=== PATIENT | male | born 1940 | race Caucasian/White ===

== ENCOUNTER 2016-10-20 15:26 | Inpatient (IN) | payer MEDICARE ==
[~2016-10-20] VITALS: Ht 179.1 cm; Wt 86.2 kg
[~2016-10-20 15:26] MED LIST: ALBU8.5H2 INHALATION; DILT240C9 PO; FAMO20TA4 PO; FLUT12AE8 IH; FURO40TA4 PO; IPRA4AER IH; LIP40 PO; LOSA100T29 PO; MECL-114 PO; NITR0.4T SL; WARF2TAB7 PO; WARF4TAB6 PO
[2016-10-20 15:34] VITALS: BP 130/71; PULSE 78; RESP 28; O2SAT 93
--- NOTE | 2016-10-20 16:00 | ED.REPORT ---
HPI-General Illness Date of Service Oct 20, 2016 ED Provider: Hero Dwyer MD The pt is a 75 y/o male on Warfarin with a hx of HTN, CHF, A-fib, prostate and lung cancer and bilateral renal stents who presents to the ED complaining of worsening shortness of breath, onset 2 days ago. Associated sx include no- productive cough and fever of 101.7. Shortness of breath is present at all times, not necessarily worse with exertion. No associated chest pain. No notable alleviating or exacerbating factors noted previously. The pt was scheduled to have stents placed in his leg [address] Felder but it was cancelled due to an elevated WBC. His X-ray at the time also indicated pneumonia. However, he states that he was not prescribed antibiotics. He denies any other symptoms at this time. Nursing Notes Stated Complaint: SOB,POSS PNEUMONIA Chief Complaint: Respiratory Distress Nursing Notes Reviewed: Yes Allergies: Coded Allergies: lisinopril (Verified Adverse Reaction, Severe, Cough, 10/20/16) Scheduled Albuterol/Ipratropium (Combivent Respimat Inhal [place]) 120 Spr/4 Gm Inhaler 1 PUFF IH QID Atorvastatin (Lipitor) 40 Mg Tablet 40 MG PO DAILY Diltiazem ER (Diltiazem ER) 240 Mg Cap.er.deg 240 MG PO DAILY Famotidine (Famotidine) 20 Mg Tablet 20 MG PO BID Fluticasone Propionate (Flovent HFA 110 mcg) 12 Gm Aer.w.adap 1 PUFF IH BID Furosemide (Furosemide) 40 Mg Tablet 40 MG PO DAILY Losartan Potassium (Losartan Potassium) 50 Mg Tablet 50 MG PO DAILY Nitroglycerin SL (Nitrostat) 0.4 Mg Tab.subl 0.4 MG SL Q5MIN Warfarin Sodium (Warfarin Sodium) 2 Mg Tablet 2 MG PO DAILY 2mg on Friday and Warfarin Sodium (Warfarin Sodium) 4 Mg Tablet 4 MG PO DAILY 4mg daily except on and Scheduled PRN Albuterol HFA (Proair HFA) 8.5 Gm Hfa.aer.ad 2 PUFFS INHALATION Q4H PRN PRN For Shortness of Breath Oxycodone HCl/Acetaminophen 5-325 (Endocet 5-325) 1 Each Tablet 1 TABLET PO Q4H PRN PRN For Pain General Time Seen by MD: 15:58 Chief Complaint Breathing problem Hx Obtained From: Patient Arrived By: Walk-in Sudden in Onset?: Yes Onset Occurred: 2 days ago Symptom Duration: Since onset Severity: Current: No pain currently Severity: Maximum: No pain Recent Healthcare: Recent doctor visit Past Medical History Past Medical History HTN ASTHMA Prostate cancer Lung cancer CHF A-fib Past Surgical History CABG Bilateral renal stents Family History Denies pertinent family history. Smoking History Unknown if Ever Smoker Social History Other Social History: Good social support Ambulatory Status Independent Review of Systems Full Review of Systems Constitutional: Reports: Fever Eyes: Denies: Diplopia Ears / Nose / Throat: Denies: Throat swelling Respiratory: Reports: Non-productive cough, Shortness of breath Cardiovascular: Denies: Chest pain GI: Denies: Abdominal pain Male: Denies Dysuria Musculoskeletal: Denies: Back pain Hematologic: Denies Bruising Endocrine: Denies: Polyuria Skin: Denies Rash Allergy / Immune: Denies: Hives Neurologic: Denies: Headache Psychiatric: Denies: Change mental status Complete sys rev & neg: except as marked. Physical Exam Nursing note and vitals reviewed. Constitutional: Well-developed, well-nourished. Not diaphoretic. Head: Normocephalic and atraumatic. Mouth/Throat: Oropharynx is clear and moist. No oropharyngeal exudate. Eyes: EOM are normal. Pupils are equal, round, and reactive to light. Neck: Supple, no tracheal deviation. Cardiovascular: Normal rate, irregular rhythm. Equal and intact distal pulses throughout. Pulmonary/Chest: Mildly increased respiratory effort. Rhonchi at bilateral bases. Abdominal: Soft. No distension. There is no tenderness, rebound, or guarding. Bowel sounds present. Musculoskeletal: Range of motion grossly intact, moving all extremities. No edema or tenderness appreciated. Neurological: AOx3. Grossly nonfocal exam. Strength and sensation intact and equal to bilateral upper and lower extremities. Skin: Warm and dry, no rashes or pallor appreciated. Psychiatric: Appropriate mood and affect. Behavior appears normal. Vital Signs Vital Signs Date Time Temp Pulse Resp B/P Pulse Ox O2 Delivery O2 Flow Rate FiO2 10/20/16 16:51 70 20 97 Nasal Cannula 3 10/20/16 16:45 99 20 137/77 99 Nasal Cannula 2 10/20/16 15:34 37.9 78 28 130/71 93 Room Air Initial VS: Reviewed Interpretation & Diagnostics Lab Results Interpretation Result Diagram: 10/20/16 1613 10/20/16 1613 Test 10/20/16 16:13 10/20/16 16:22 10/20/16 17:47 White Blood Count 17.4th/mm3 (3.8-10.1) Red Blood Count 3.71mil/mm3 (4.40-5.80) Hemoglobin 11.3g/dL (13.8-17.2) Hematocrit 34.9% (41.0-50.0) Mean Corpuscular Volume 94.1fL (81-100) Mean Corpuscular Hemoglobin 30.5pg (27.0-35.0) Mean Corpuscular Hemoglobin Concent 32.4% (32.0-37.0) Red Cell Distribution Width 14.1% (12.3-15.4) Platelet Count 275bil/L (150-400) Neutrophils (%) (Auto) 84.7% (40-74) Lymphocytes (%) (Auto) 5.1% (14-46) Monocytes (%) (Auto) 9.2% (4-12) Eosinophils (%) (Auto) 0.5% (0-5) Basophils (%) (Auto) 0.2% (0-3) Sodium Level 138mEq/L (134-144) Potassium Level 4.0mEq/L (3.5-5.2) Chloride Level 98mEq/L (97-108) Carbon Dioxide Level 20mmol/L (18-29) Blood Urea Nitrogen 30mg/dL (8-27) Creatinine 1.67mg/dL (0.76-1.27) Estimat Glomerular Filtration Rate 43mL/min (>59) Glucose Level 116mg/dL (60-99) Calcium Level 9.0mg/dL (8.5-10.1) Total Bilirubin 0.8mg/dL (0.0-1.2) Aspartate Amino Transf (AST/SGOT) 29U/L (0-50) Alanine Aminotransferase (ALT/SGPT) 27U/L (0-44) Alkaline Phosphatase 115U/L (25-160) Troponin T 0.027ug/L (0.0-0.011) Pro-B-Type Natriuretic Peptide 3752pg/mL (0-376) Total Protein 7.2g/dL (6.4-8.4) Albumin 3.6g/dL (3.4-5.0) Procalcitonin 0.15ng/mL (0.00-0.08) Lactic Acid Level 1.2mmol/L (0.4-2.0) Urine Color Yellow (YELLOW) Urine Appearance Clear (CLEAR,HAZY) Urine pH 5.0 (5.0-8.0) Urine Specific [place] 1.025 (1.003-1.035) Urine Protein 100mg/dL (NEG,TRACE) Urine Glucose (UA) Negativemg/dL (NEGATIVE) Urine Ketones Negativemg/dL (NEGATIVE) Urine Occult Blood Small (NEGATIVE) Urine Nitrite Negative (NEGATIVE) Urine Bilirubin Negative (NEGATIVE) Urine Urobilinogen Normalmg/dL (NORMAL) Urine Leukocyte Esterase Negative (NEGATIVE) Urine RBC 0-2/hpf (0-2) Urine WBC 0-5/hpf (0-5) Urine Epithelial Cells Occasional/hpf (NONE-MOD) Urine Crystals Amorphous urates (NONE Urine Bacteria None/hpf (NONE-FEW) Urine Hyaline Casts None/lpf (NONE) Urine Granular Casts None seen (NONE SEEN) Urine Waxy Casts None seen (NONE SEEN) Urine Red Blood Cell Casts None seen (NONE SEEN) Urine White Blood Cell Casts None seen (NONE SEEN) Urine Mucus None seen (None Seen) Urine Trichomonas None seen (NONE SEEN) Urine Yeast None (NONE SEEN) Urinalysis Comment None Urine Culture Reflexed Not indicated ECG Interpretation ECG Interpretation: A-fib. Rate 83. Abnormal R-wave progression, early transition. Time: 16:08 Interpreted by: ED physician X-Ray Chest Interpretation Chest Xray Interpretation: IMPRESSION: Small right pleural effusion unchanged to slightly more prominent since the previous x-ray of 10/18/16. No evidence for failure or infiltrate is identified as the cause of this. Dictated by: Fito Cowan M.D. on 10/20/2016 at 16:35 Approved by: Fito Cowan M.D. on 10/20/2016 at 16:41 View: Portable, 1 view Interpretation / Wet Read by: Interpret - Radiologist Re-Eval/Medical Decision Med Decision/Clinical Course In summary, 75-year-old male with a complex past medical history including A. fib on Coumadin presenting to the ED for evaluation of worsening dyspnea over the past several days. Differential is broad and includes PE, pneumonia, COPD exacerbation, CHF exacerbation, ACS, etc. He is not having any pleuritic symptoms and is low risk by Well's criteria. His x-ray does demonstrate what appears to be a pneumonia on the right versus a pleural effusion; however, in the context of fever, leukocytosis with a neutrophilic predominance, I suspect that this is likely a pneumonia at this time. Rest of laboratory studies reviewed, notable for a troponin of 0.027, BNP of 3752, creatinine of 1.67, white blood cell count of 17.4. EKG demonstrates atrial fibrillation, no acute ischemic changes. Given the above, plan admission for further management and evaluation of sepsis from likely community-acquired pneumonia. Started on broad -spectrum antibiotics here in the ED. Patient agreeable to the plan as stated, no further questions. Source of Hx: Old records Time of Eval: 18:29 Re-Evaluation/Progress Note: Rechecked pt. Discussed lab results, imaging results,diagnosis and plan to admit. Pt understands and agrees with the plan for admission. All questions addressed. Consultation : Referral / Consult Name: Gabrielle Mendosa DO Consulted With: Hospitalist Call Returned at: 19:12 Forest Technician: Will see patient, Agrees with eval, Agrees with plan, Accepts admit Counseled Regarding: Diagnosis, Lab results, Need for admission Discharge & Departure Primary Impression: Pneumonia Pneumonia type: due to unspecified organism Laterality: bilateral Lung location: lower lobe of lung Qualified Code: J18.9 - Pneumonia, unspecified organism Additional Impression: Sepsis Sepsis type: sepsis due to unspecified organism Qualified Code: A41.9 - Sepsis, unspecified organism Disposition: ADMITTED TO HOSPITAL Discharge Condition All VS Reviewed: Yes Referrals: Libby Tracey MD (PCP) Scribe Attestation Portions of this note were transcribed by Reji Oates. I,, personally performed the history, physical exam and medical decision-making;I reviewed and confirmed the accuracy of the information in the transcribed note. Signed by Nino Dia. 10/20/16 copies to: Libby Tracey MD, William B MD Oct 20, 2016 16:00 Reji Oates Oct 20, 2016 16:12
[2016-10-20 16:27] LABS: BASOPHILS % (AUTO) 0.2 % (0-3); EOSINOPHILS % (AUTO) 0.5 % (0-5); MONOCYTES % (AUTO) 9.2 % (4-12); Mean Corpuscular Hemoglobin 30.5 pg (27.0-35.0); Mean Corpuscular Volume 94.1 fL (81-100); NEUTROPHILS % (AUTO) 84.7 % (40-74); Platelet Count 275 bil/L (150-400)
[2016-10-20 16:38] LABS: TROPONIN T 0.027 ug/L (0.0-0.011)
[2016-10-20] MEDS ORDERED: Albuterol-Ipratropium 3 mL Inhalation Solution ONE (16:38)
[2016-10-20] MEDS ORDERED: Albuterol 2.5 mg/3 mL Inhalation Solution NEB ONE (16:38)
--- NOTE | 2016-10-20 16:44 | DRSVH ---
PROCEDURE: X-RAY CHEST ONE VIEW, PORTABLE ([id number]) INDICATIONS: shortness of breath TECHNIQUE: One view of the chest was acquired. COMPARISON: [facility], CT, CT ANGIO AORTA RUNOFF, 10/07/2016, 13:15. [facility] pital, CT, CT CHEST ABDOMEN WO CONTRAST, 05/30/2016, 12:45 PM. [facility], CR, CHEST 2V W, 02/23/2014, 10:20. [facility], CR, XR CHEST 1VW (PORTABLE), 10/18/2016, 15:03. FINDINGS: Surgical changes and devices: Sternotomy wires are present. Port-A-Cath from a right internal jugular approach is present and unchanged. Vascular clips are seen in the right upper midline chest are para mediastinal region. Lungs and pleura: There is blunting of the left apical lung field. There is prominent globular shape to the heart and prominent right hilum. These are old findings. There is blunting of the right costop hrenic sulcus which is new since older films but a new finding since CT of the thorax in May [address] of the angeal runoff of September of 2016 Mediastinum: Mediastinal contours appear normal. Heart size is normal. Bones and chest wall: No suspicious bony lesions. Overlying soft tissues appear unremarkable. IMPRESSION: Small right pleural effusion unchanged to slightly more prominent since the previous x-ra y of 10/18/16. No evidence for failure or infiltrate is identified as the cause of this. Dictated by: Fito Cowan M.D. on 10/20/2016 at 16:35 Approved by: Fito Cowan M.D. on 10/20/2016 at 16:41
[2016-10-20 16:45] VITALS: BP 137/77; PULSE 99; RESP 20; O2SAT 99
[2016-10-20 16:51] VITALS: PULSE 70; RESP 20; O2SAT 97
[2016-10-20 18:06] LABS: APPEARANCE,URINE CLEAR (CLEAR,HAZY); COLOR,URINE YELLOW (YELLOW); OCCULT BLOOD,URINE SMALL (NEGATIVE); UROBILINOGEN,URINE NORMAL (NORMAL)
[2016-10-20] MEDS ORDERED: 0.9% Sodium Chloride 1,000 ML IV ONE (18:38)
[2016-10-20] MEDS ORDERED: levoFLOXacin Inj 750 MG in IV Premix 1 EACH IV ONE (18:40)
[2016-10-20] MEDS ORDERED: Cefepime Inj 2,000 MG in Dextrose 5% Minibag Plus 100 ML IV ONE (18:40)
[2016-10-20] MEDS ORDERED: Vancomycin Dose per Pharmacist XX ONE (18:40)
[2016-10-20] MEDS ORDERED: Vancomycin Inj 1,750 MG in 0.9% Sodium Chloride 500 ML IV ONE (18:55)
[2016-10-20 19:34] VITALS: BP 116/58; PULSE 80; RESP 23; O2SAT 93
[2016-10-20] MEDS ORDERED: Alum-Mag Hydrox-Simeth 30 mL Suspension PO PRN (19:45)
[2016-10-20] MEDS ORDERED: Polyethylene Glycol (PEG) 17 Gm Powder PO PRN (19:45)
[2016-10-20 20:10] VITALS: BP 163/71; PULSE 77; RESP 20; O2SAT 94
[2016-10-20 20:20] VITALS: PULSE 76
--- NOTE | 2016-10-20 20:31 | PCM.HPMED ---
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 Reportedly seen [address] Felder for evaluation of peripheral stent placement in Rt LE, this was postponed after being found that he had an elevated white blood count, chest x- ray at the time showed infiltrate suspicious of pneumonia. At the time he is asymptomatic except for dry cough which he attributed to [place] He has a daughter who is a nurse who saw him today and recommended he go to the ER due to his increased respiratory rate and increased cough. On presentation to the emergency department had a temperature of 37.9, respiratory rate 28, 93% on room air, blood pressure 130/71. White blood cell count 17.4, 84% neuts, hemoglobin 11.3 BUN 30 creatinine 1.67, glucose 116, lactic acid 1.2, troponin 0.27 EKG showed atrial fibrillation, no signs of acute ischemia or infarct, QTC 486, rate 83. Chest x-ray redemonstrated findings from chest x-ray on 10/18/2016 -small right pleural effusion. Based on patient's increased respiratory rate, elevated temperature, elevated white blood count, patient was admitted for sepsis secondary to community- acquired pneumonia. He received a dose of vancomycin, cefepime, and the emergency department was admitted and placed on ceftriaxone. On encounter for admission patient denies any lightheadedness, dizziness, nausea vomiting diarrhea, constipation, bruising or bleeding, headache, changes in vision, palpitations, chest pain, numbness weakness or tingling in his arms hands feet or legs, weight loss or weight gain. Review of Systems: A comprehensive review of systems was conducted with the patient and found to be negative except as above in the history of presenting illness. Allergies Coded Allergies: lisinopril (Verified Adverse Reaction, Severe, Cough, 10/20/16) Home Medications Scheduled Albuterol HFA (Proair HFA) 8.5 Gm Hfa.aer.ad 2 PUFFS INHALATION Q4H Albuterol/Ipratropium (Combivent Respimat Inhal [place]) 120 Spr/4 Gm Inhaler 1 PUFF IH QID Atorvastatin (Lipitor) 40 Mg Tablet 40 MG PO DAILY Diltiazem ER (Diltiazem ER) 240 Mg Cap.er.deg 240 MG PO DAILY Famotidine (Famotidine) 20 Mg Tablet 20 MG PO BID Fluticasone Propionate (Flovent HFA 110 mcg) 12 Gm Aer.w.adap 1 PUFF IH BID Furosemide (Furosemide) 40 Mg Tablet 40 MG PO DAILY Losartan Potassium (Losartan Potassium) 100 Mg Tablet 100 MG PO DAILY Meclizine ([place]) 25 Mg Tab.chew 12.5 MG PO BID Nitroglycerin SL (Nitrostat) 0.4 Mg Tab.subl 0.4 MG SL Q5MIN Warfarin Sodium (Warfarin Sodium) 2 Mg Tablet 2 MG PO DAILY 2mg on Friday and Warfarin Sodium (Warfarin Sodium) 4 Mg Tablet 4 MG PO DAILY 4mg daily except on and PMH HTN ASTHMA Prostate cancer Lung cancer CHF A-fib Surgical History CABG, first in 1984, again in 2005 Bilateral renal stents Family History Father had coronary artery disease, of myocardial infarction at age of 51. Mother "" at the age of 70 cause of unknown. Sister of a myocardial infarction at age 31. Brother of myocardial infarction at age of 77 and was reportedly 600 pounds. Social History Hx Alcohol Use: No Hx Substance Use: No Hx Tobacco Use: Yes Smoking Status: Former Smoker (quit 25 years ago), Unknown if Ever Smoker Living Arrangement: Alone Exam Vital Signs Vital Sign - Last Date Time Temp Pulse Resp B/P Pulse Ox O2 Delivery O2 Flow Rate FiO2 10/20/16 20:10 37.1 77 20 163/71 94 Nasal Cannula 2.00 Exam General: Laying in bed, no apparent distress. HEENT: Normocephalic, atraumatic, EOMI grossly, mucous membranes moist, nasal cannula in place, conjunctiva pink, neck supple without lymphadenopathy, no JVD. Cardiovascular: Irregularly irregular rhythm, unable to appreciate clicks murmurs or rubs, peripheral pulses intact equal bilaterally upper and lower. Pulmonary: Diffuse rhonchi, most likely transmitted from upper airway, unable to appreciate dullness to percussion, egophony normal. No wheezing or rales. - Port present and covered on R anterior chest wall. Abdominal: Soft to palpation, bowel sounds present 4, no hepatosplenomegaly. Negative rebound. Extremities: No edema appreciated. No tenderness, asymmetry. Neuro: Neurologically grossly intact, strength is equal bilaterally upper and lower extremities. MSK: Able to move extremities on their own volition, strength 5 out of 5 equal bilaterally to upper and lower extremities. Psychiatric: Normal and appropriate affect, alert and oriented. Lab and Diagnostics Result Diagram: 10/20/16 1613 10/20/16 1613 X-Rays, CTs and MRIs Chest x-ray performed 10/20/2016 IMPRESSION: Small right pleural effusion unchanged to slightly more prominent since the previous x-ray of 10/18/16. No evidence for failure or infiltrate is identified as the cause of this. Dictated by: Fito Cowan M.D. on 10/20/2016 at 16:35 12-lead ECG Rate 83, normal axis, irregularly irregular rhythm with absence of P waves, no signs of acute infarct or ischemia, QTC 486 Assessment & Plan 75-year-old gentleman with history of coronary artery disease status post bypass 2, atrial fibrillation anticoagulated, renovascular stenting, lung cancer status post chemotherapy, found to have community-acquired pneumonia 2 days ago with instructions to follow up with primary care doctor on Friday began to have worsening shortness of breath and presented to the emergency department where he was found to meet sepsis criteria and was admitted for sepsis treatment at community acquired pneumonia management. Acute Sepsis, present on admission, active Respiratory rate 28 on presentation, WBCs 17.4, dyspnea, cough, x-ray demonstrating pneumonia(reviewed by admitting team on admission). Treatment CAP as below Blood cultures pending Lactic acid was normal IV fluids 100 mL per hour normal saline. Acute Community acquired pneumonia, present on admission, active Curb 65 score 2, for increased BUN and age greater than 65, BUN chronically elevated. Demonstrated a by x-ray, tachypnea, subjective shortness of breath, elevated white blood count. Received dose of vancomycin, cefepime, levofloxacin from the emergency department. Continue levofloxacillin 750 mg daily (monitor QTC, repeat EKG prior to discharge). Sputum cultures ordered, not acquired before antibiotics given Urine Legionella and strep pneumo antigen ordered. MRSA nasal screen pending. Respiratory virus PCR profile Supplementary O2 as needed to maintain oxygen saturation between 88 and 92% Acute Leukocytosis, present on admission, active Attributed to pulmonary infection. Monitor with a.m. labs Elevated troponin, chronicity unclear, Present on admission, active Review of hospital labs does not show any previous troponins. Every 6 hour troponin to trend. May be attributed to decreased renal function and subsequent decreased clearance , however was substantial cardiac history we will continue to monitor. Permanent Atrial fibrillation, present on admission, active Rate controlled on diltiazem, anticoagulated on warfarin. PT/INR pending Placed on remote telemetry Warfarin to be dosed by pharmacy Chronic obstructive pulmonary disease, present on admission, active Continue home albuterol and Combivent. Supplemental oxygen as needed to maintain oxygen saturation between 88-92% His symptoms become worsening or uncontrolled switch nebulized albuterol or DuoNeb's. Chronic Congestive heart failure, present on admission, stable Blood pressure is controlled, continue home furosemide, losartan, atorvastatin. Patient has allergy to lisinopril. Continue home medications Physical exam, chest x-ray do not suggest exacerbation. Chronic Hypertension, controlled on admission, active Continue home medications as above Chronic kidney disease, present on admission, stable Creatinine 1.67, review of records shows this to be patient's baseline. We will continue to monitor with daily BMP/CMP Patient admitted to inpatient status with anticipated length of stay greater than 2 midnights based on presenting symptoms, complexity of care, and anticipated risk of adverse events. DVT prophylaxis, patient currently on warfarin. Pain management: Acetaminophen. GI prophylaxis not indicated at this time Pain Evaluation: Adequate Pain Control GI Prophylaxis: Not indicated VTE Prophylaxis: Theraputic Anticoag with Warfarin Resuscitation Status: CPR: Attempt Resuscitation Attending Statement The patient was seen and examined together with house staff on 10/20/2016 and I agree with the history, exam and plan as outlined in the note above. Jose Zamora DO Oct 20, 2016 20:31 Gabrielle Mnedosa DO Oct 20, 2016 23:41
[2016-10-20] MEDS ORDERED: MECLIZINE 12.5 MG PO SCH (20:55)
[2016-10-20] MEDS ORDERED: Albuterol HFA 60 Puff 8 Gm Inhaler INHALATION SCH (20:55)
[2016-10-20] MEDS ORDERED: FLUTICASONE PROPIONATE IH SCH (20:55)
[2016-10-20] MEDS ORDERED: Albuterol 2.5 mg/3 mL Inhalation Solution NEB PRN (21:20)
--- NOTE | 2016-10-20 22:00 | NUR ---
admit note Pt is admitted to room 3027 around 20:00 from ED for pneumonia and sepsis. Pt is A&Ox4, gets very SOB with exertion; relieves when resting in bed. SpO2 @88% on RA when sitting in bed; up to mid 90s on 2L O2 via NC. Persistent productive cough. Levaquin given, Vanco infusing at this time w/o adverse reaction noted. Pt is oriented to room and plan of care; he verbalized understanding. Encouraged to call for assistance when getting OOB due to lines and SOB; he verbalized understanding. bed alarm on for safety Med Rec completed using pt's own med list. Dr. Zamora notified of the changes. Addendum: 10/21/16 at 0455 by JASWANT TAYLOR RN Pt still c/o moderate SOB with exertion. denies SOB when resting in bed or sitting in the chair. denies pain or discomfort. slept very little tonight. able to make needs known. Addendum: 10/21/16 at 0540 by JASWANT TAYLOR RN Pt unable to tolerate O2 via NC; "it feels like it's choking me". Sats in high 90s on 2L. Pt desats with exertion sating 85% on RA with increase in wheezing. SpO2 up to low 90s on RA when resting. Neb tx will be given by RT.
[2016-10-20 22:28] LABS: INR 1.19 ratio
[2016-10-20] MEDS: Fluticasone 0.05% 15 Spray/2 Gm 16 Gm Nasal Spray NASAL SCH (23:19)
[2016-10-20] MEDS ORDERED: ALBU8.5H2 INHALATION (23:45)
[2016-10-20] MEDS ORDERED: LOSA50TA37 PO (23:45)
[2016-10-20] MEDS ORDERED: OXYC-407 PO (23:45)
[2016-10-21] VITALS (10 sets, daily range): BP systolic 127–176; BP diastolic 71–87; PULSE 60–95; RESP 18–22; O2SAT 93–97
[2016-10-21] MEDS ORDERED: Albuterol HFA 60 Puff 8 Gm Inhaler INHALATION PRN (00:55)
[2016-10-21] MEDS: Albuterol-Ipratropium 120 Spray 4 Gm Inhaler INHALATION SCH ×5 (01:14→20:35)
[2016-10-21] MEDS: 0.9% Sodium Chloride 1,000 ML IV SCH ×3 (02:25→22:25)
[2016-10-21 02:35] LABS: BASOPHILS % (AUTO) 0.1 % (0-3); EOSINOPHILS % (AUTO) 0.4 % (0-5); MONOCYTES % (AUTO) 11.8 % (4-12); Mean Corpuscular Hemoglobin 29.8 pg (27.0-35.0); Mean Corpuscular Volume 94.3 fL (81-100); NEUTROPHILS % (AUTO) 79.3 % (40-74); Platelet Count 247 bil/L (150-400)
[2016-10-21 02:55] LABS: Magnesium 2.1 mg/dL (1.6-2.6)
[2016-10-21] MEDS ORDERED: cefTRIAXone Inj 2,000 MG in Dextrose 5% Minibag Plus 50 ML IV SCH (08:30)
[2016-10-21] MEDS ORDERED: DILTIAZEM 240 MG PO SCH (08:30)
[2016-10-21] MEDS: Fluticasone 0.05% 15 Spray/2 Gm 16 Gm Nasal Spray NASAL SCH ×2 (08:30→20:30)
[2016-10-21] MEDS: levoFLOXacin Inj 750 MG in IV Premix 1 EACH IV SCH (09:13)
[2016-10-21] MEDS: Diltiazem CD 240 mg ER24 Capsule PO SCH (09:13)
[2016-10-21] MEDS ORDERED: Heparin Initial Bolus IVPUSH ONE (10:20)
[2016-10-21] MEDS ORDERED: Heparin Protocol Boluses IVPUSH PRN (10:20)
--- NOTE | 2016-10-21 10:37 | PCM.PHAPRO ---
Progress Date of Service: Oct 21, 2016 Warfarin dosing Date -Oct 21-Oct INR 1.19 1.19 INR change Warf Dose 6mg 4mg Madeline Sutton PharmD Oct 21, 2016 10:37
[2016-10-21] MEDS: Heparin 25K Unit/500mL 0.45 NS 25,000 UNIT in IV Premix 1 EACH IV SCH (11:03)
--- NOTE | 2016-10-21 13:05 | PCM.PNMED ---
Subjective Date of Service Oct 21, 2016 Subjective Patient with cough which started recently. Generally nonproductive. 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 Dubois and oncologist is Dr. Rocha. Exam Vital Signs Vital Sign - Last Date Time Temp Pulse Resp B/P Pulse Ox O2 Delivery O2 Flow Rate FiO2 10/21/16 09:40 93 10/21/16 09:24 36.6 18 163/87 93 Room Air 10/21/16 02:32 2.00 Intake and Output 10/20/16 10/20/16 10/21/16 Cumulative From/Thru 15:00 23:00 07:00 10/20/16 15:34 - 10/21/16 06:38 Intake Total 999 ml 1054 ml 2053 ml Output Total 275 ml 275 ml Balance 999 ml 779 ml 1778 ml Intake Oral 400 ml 400 ml IV Total 999 ml 654 ml 1653 ml Output Urine Total 275 ml 275 ml Exam Constitutional: Elderly male in no acute distress Head: Normocephalic atraumatic Chest: Decreased breath sounds at his bases bilaterally Cor: Irregular regular rate and rhythm S1-S2 Abdomen: Soft nontender bowel sounds present Extremities: Bilateral pedal edema Neuro: Alert and oriented 3, motor strength is intact bilaterally IVs and Medications Medications Reviewed: Medications were reviewed in detail Lab and Diagnostics Laboratory Tests 72 Hours Test 10/20/16 16:13 10/20/16 16:22 10/20/16 17:47 10/20/16 21:50 White Blood Count 17.4th/mm3 (3.8-10.1) Red Blood Count 3.71mil/mm3 (4.40-5.80) Hemoglobin 11.3g/dL (13.8-17.2) Hematocrit 34.9% (41.0-50.0) Mean Corpuscular Volume 94.1fL (81-100) Mean Corpuscular Hemoglobin 30.5pg (27.0-35.0) Mean Corpuscular Hemoglobin Concent 32.4% (32.0-37.0) Red Cell Distribution Width 14.1% (12.3-15.4) Platelet Count 275bil/L (150-400) Neutrophils (%) (Auto) 84.7% (40-74) Lymphocytes (%) (Auto) 5.1% (14-46) Monocytes (%) (Auto) 9.2% (4-12) Eosinophils (%) (Auto) 0.5% (0-5) Basophils (%) (Auto) 0.2% (0-3) Sodium Level 138mEq/L (134-144) Potassium Level 4.0mEq/L (3.5-5.2) Chloride Level 98mEq/L (97-108) Carbon Dioxide Level 20mmol/L (18-29) Blood Urea Nitrogen 30mg/dL (8-27) Creatinine 1.67mg/dL (0.76-1.27) Estimat Glomerular Filtration Rate 43mL/min (>59) Glucose Level 116mg/dL (60-99) Calcium Level 9.0mg/dL (8.5-10.1) Total Bilirubin 0.8mg/dL (0.0-1.2) Aspartate Amino Transf (AST/SGOT) 29U/L (0-50) Alanine Aminotransferase (ALT/SGPT) 27U/L (0-44) Alkaline Phosphatase 115U/L (25-160) Troponin T 0.027ug/L (0.0-0.011) Pro-B-Type Natriuretic Peptide 3752pg/mL (0-376) Total Protein 7.2g/dL (6.4-8.4) Albumin 3.6g/dL (3.4-5.0) Procalcitonin 0.15ng/mL (0.00-0.08) Lactic Acid Level 1.2mmol/L (0.4-2.0) Urine Color Yellow (YELLOW) Urine Appearance Clear (CLEAR,HAZY) Urine pH 5.0 (5.0-8.0) Urine Specific [place] 1.025 (1.003-1.035) Urine Protein 100mg/dL (NEG,TRACE) Urine Glucose (UA) Negativemg/dL (NEGATIVE) Urine Ketones Negativemg/dL (NEGATIVE) Urine Occult Blood Small (NEGATIVE) Urine Nitrite Negative (NEGATIVE) Urine Bilirubin Negative (NEGATIVE) Urine Urobilinogen Normalmg/dL (NORMAL) Urine Leukocyte Esterase Negative (NEGATIVE) Urine RBC 0-2/hpf (0-2) Urine WBC 0-5/hpf (0-5) Urine Epithelial Cells Occasional/hpf (NONE-MOD) Urine Crystals Amorphous urates (NONE Urine Bacteria None/hpf (NONE-FEW) Urine Hyaline Casts None/lpf (NONE) Urine Granular Casts None seen (NONE SEEN) Urine Waxy Casts None seen (NONE SEEN) Urine Red Blood Cell Casts None seen (NONE SEEN) Urine White Blood Cell Casts None seen (NONE SEEN) Urine Mucus None seen (None Seen) Urine Trichomonas None seen (NONE SEEN) Urine Yeast None (NONE SEEN) Urinalysis Comment None Urine Culture Reflexed Not indicated Prothrombin Time 12.8sec (8.1-12.5) Prothromb Time International Ratio 1.19ratio Test 10/21/16 02:25 10/21/16 02:30 10/21/16 05:05 10/21/16 10:20 White Blood Count 15.2th/mm3 (3.8-10.1) Red Blood Count 3.52mil/mm3 (4.40-5.80) Hemoglobin 10.5g/dL (13.8-17.2) Hematocrit 33.2% (41.0-50.0) Mean Corpuscular Volume 94.3fL (81-100) Mean Corpuscular Hemoglobin 29.8pg (27.0-35.0) Mean Corpuscular Hemoglobin Concent 31.6% (32.0-37.0) Red Cell Distribution Width 14.3% (12.3-15.4) Platelet Count 247bil/L (150-400) Neutrophils (%) (Auto) 79.3% (40-74) Lymphocytes (%) (Auto) 8.1% (14-46) Monocytes (%) (Auto) 11.8% (4-12) Eosinophils (%) (Auto) 0.4% (0-5) Basophils (%) (Auto) 0.1% (0-3) Sodium Level 139mEq/L (134-144) Potassium Level 4.0mEq/L (3.5-5.2) Chloride Level 101mEq/L (97-108) Carbon Dioxide Level 21mmol/L (18-29) Blood Urea Nitrogen 29mg/dL (8-27) Creatinine 1.56mg/dL (0.76-1.27) Estimat Glomerular Filtration Rate 47mL/min (>59) Glucose Level 106mg/dL (60-99) Calcium Level 9.0mg/dL (8.5-10.1) Magnesium Level 2.1mg/dL (1.6-2.6) Total Bilirubin 0.7mg/dL (0.0-1.2) Aspartate Amino Transf (AST/SGOT) 28U/L (0-50) Alanine Aminotransferase (ALT/SGPT) 30U/L (0-44) Alkaline Phosphatase 108U/L (25-160) Total Protein 7.0g/dL (6.4-8.4) Albumin 3.7g/dL (3.4-5.0) Troponin T 0.024ug/L (0.0-0.011) 0.023ug/L (0.0-0.011) Urine Legionella pneumophilia Ag Negative (Negative) Result Diagram: 10/21/1622410/21/16224 X-Rays, CTs and MRIs Chest x-ray performed 10/20/2016 IMPRESSION: Small right pleural effusion unchanged to slightly more prominent since the previous x-ray of 10/18/16. No evidence for failure or infiltrate is identified as the cause of this. Dictated by: Fito Cowan M.D. on 10/20/2016 at 16:35 12-lead ECG Rate 83, normal axis, irregularly irregular rhythm with absence of P waves, no signs of acute infarct or ischemia, QTC 486 Assessment & Plan 75-year-old gentleman with history of coronary artery disease status post bypass 2, atrial fibrillation anticoagulated, renovascular stenting, lung cancer status post chemotherapy, found to have community-acquired pneumonia 2 days ago with instructions to follow up with primary care doctor on Friday began to have worsening shortness of breath and presented to the emergency department where he was found to meet sepsis criteria and was admitted for sepsis treatment at community acquired pneumonia management. Acute Sepsis, present on admission, active Respiratory rate 28 on presentation, WBCs 17.4, dyspnea, cough, x-ray demonstrating pneumonia(reviewed by admitting team on admission). Treatment CAP as below Blood cultures pending Lactic acid was normal IV fluids 100 mL per hour normal saline. Acute Community acquired pneumonia, present on admission, active Curb 65 score 2, for increased BUN and age greater than 65, BUN chronically elevated. Demonstrated a by x-ray, tachypnea, subjective shortness of breath, elevated white blood count. Received dose of vancomycin, cefepime, levofloxacin from the emergency department. Continue levofloxacillin 750 mg daily (monitor QTC, repeat EKG prior to discharge). Sputum cultures ordered, not acquired before antibiotics given Urine Legionella and strep pneumo antigen ordered. MRSA nasal screen was negative Respiratory virus PCR profile was negative Supplementary O2 as needed to maintain oxygen saturation between 88 and 92% We will proceed with getting a CT of chest without contrast to further elucidate possible infiltrates and chest x-ray with small right pleural effusion. Acute Leukocytosis, present on admission, active Attributed to pulmonary infection. Monitor with a.m. labs and it is slightly improved this morning on October 21. Elevated troponin, chronicity unclear, Present on admission, active Review of hospital labs does not show any previous troponins. Every 6 hour troponin to trend, repeat was stable. May be attributed to decreased renal function and subsequent decreased clearance , however was substantial cardiac history we will continue to monitor. Permanent Atrial fibrillation, present on admission, active Rate controlled on diltiazem, anticoagulated on warfarin. PT/INR pending Placed on remote telemetry Warfarin to be dosed by pharmacy and recommendation was to put on IV heparin bridging (this is chosen since patient has chronic renal failure) until Coumadin dose is titrated to therapeutic. Chronic obstructive pulmonary disease, present on admission, active Continue home albuterol and Combivent. Supplemental oxygen as needed to maintain oxygen saturation between 88-92% His symptoms become worsening or uncontrolled switch nebulized albuterol or DuoNeb's. Chronic diastolic Congestive heart failure, present on admission, stable Blood pressure is controlled, continue home furosemide, losartan, atorvastatin. Patient has allergy to lisinopril. Continue home medications Physical exam, chest x-ray do not suggest exacerbation. Chronic Hypertension, controlled on admission, active Continue home medications as above Chronic kidney disease, stage III, present on admission, stable Creatinine 1.67, review of records shows this to be patient's baseline. We will continue to monitor with daily BMP/CMP Patient admitted to inpatient status with anticipated length of stay greater than 2 midnights based on presenting symptoms, complexity of care, and anticipated risk of adverse events. DVT prophylaxis, patient currently on warfarin. Pain management: Acetaminophen. GI prophylaxis not indicated at this time GI Prophylaxis: Not indicated VTE Prophylaxis: Theraputic Anticoag with Warfarin Resuscitation Status: CPR: Attempt Resuscitation Time spent 30 minutes Katie Winkler MD Oct 21, 2016 13:05
--- NOTE | 2016-10-21 14:43 | NUR ---
Social Work-initial assessment: Data:See initial assessment. Pt is a 75 y/o male who was admitted on 10/20/16 for pneumonia per H&P. Pt's insurance is [employer] and PCP is Libby Tracey MD. EMR Reviewed. SW met with pt to discuss discharge planning, SW role explained. Pt is alert and oriented x3. SW met with pt and his daughter Angela at bedside, SW role explained. Pt resides at home alone in [place] where he remains independent with ADLs. Pt drives and does not use any DME. Pt has no HH or SNF history. Pt has no halfway care insurance or VA benefits. SW discussed DPOA/ advanced directive, pt confirms he has completed this, SW encouraged a copy to be brought in. Pt confirms his daughter will provide transport home. No concerns noted around pt's ability for self care, RN and MD state pt has been able to follow instructions and has been independent in his room. Pt's daughter confirms she will provide transport home at discharge. SW provided pt with discharge planning checklist and encouraged him to call with any questions, SW provided phone number on white board in room. No anticipated discharge needs. SW will continue to follow if needs arise. Assessment:Pt who is independent at baseline. Plan:Pt to discharge home when medically stable via POV. No anticipated discharge needs. SW will continue to follow if needs arise. MAXIMO Haskins Addendum: 10/21/16 at 1451 by UMA LEMUS SS Amended: Links added.
--- NOTE | 2016-10-21 16:22 | DRSVH ---
PROCEDURE: CT CHEST WITHOUT CONTRAST ([id number]) INDICATIONS: sepsis,lung ca TECHNIQUE: Noncontrast 5 mm thick sections acquired from the pulmonary apices to the posterior costophrenic angl es. 7 mm thick coronal and sagittal MIP reformats were then acquired. For radiation dose reduction, the following was used: automated exposure control, adjustment of mA and/or kV according to patient size. COMPARISON: [facility], CR, XR CHEST 1VW (PORTABLE), 10/20/2016, 15:59. [facility] [place] [facility], CT, CT CHEST ABDOMEN WO CONTRAST, 05/30/2016, 12:45 PM. FINDINGS: Image quality: Excellent. Lungs and pleura: No acute air space opacities. No change in left apical airspace opacity. No change in right perihilar airspace opacity involving the right upper lower, middle, and lower lobes. There is patchy ill-defined groundglass and nodular density within the more peripheral and posterior aspect s of the right lower lobe, new since the prior examination. The superimposed nodular densities range in size up to 13 mm. No pneumothorax. Small right pleural effusion, new since the prior examination. New, 7 mm subpleural nodule within the left lower lobe posteriorly. New ground glass density within t he left lower lobe at the lung base anteriorly. Central and peripheral airways are patent and normal in caliber. Mediastinum: Heart size is enlarged. There is a small amount of gas within the right atrial appendag e, presumably iatrogenic. There is calcification of the coronary vasculature. No pericardial effusion . No mediastinal adenopathy by size criteria. Thoracic aorta and central pulmonary arteries are nor mal in size. Esophagus is normal in caliber. No change in small hiatal hernia. Bones and chest wall: No suspicious bony lesions. No vertebral body compression fractures. No axil rogelio or supraclavicular adenopathy by size criteria. Thyroid gland is not included on the examinatio n. Abdomen: Visualized portions of the upper abdomen demonstrate severe right renal atrophy. IMPRESSION: 1. New left lower lobe pneumonia. 2. New patchy ill-defined densities within the right lower lobe, with superimposed nodular densities. Small right pleural effusion. These findings are consistent with pneumonia with small parapneumonic effusion, but followup imaging is recommended to ensure resolution and exclude underlying malignancy. 3. New left lower lobe 7 mm diameter nodule; recommend attention to this region on followup imaging s [place]. 4. Small amount of gas within the right atrium, presumably iatrogenic. 5. No change in left apical and right perihilar post radiation therapy scarring. 6. Severe right renal atrophy. 7. No change in small hiatal hernia. 8. Cardiomegaly. Coronary artery disease. Dictated by: Ricci Victor M.D. on 10/21/2016 at 16:15 Approved by: Ricci Victor M.D. on 10/21/2016 at 16:21
[2016-10-21] MEDS: 0.9% Sodium Chloride 250 ML IV SCH (18:23)
[2016-10-21] MEDS ORDERED: Sodium Chloride LOK Flush 10 mL Syringe IVFLUSH PRN ×2 (18:25)
[2016-10-21] MEDS ORDERED: HepLOK Flush 100 unit/mL 5 mL Inj IVFLUSH PRN (18:25)
[2016-10-22] VITALS (7 sets, daily range): BP systolic 127–157; BP diastolic 64–89; PULSE 65–82; RESP 18; O2SAT 92–98
--- NOTE | 2016-10-22 05:02 | NUR ---
SOBOE PT was up the BR a couple times during the night and was still quite SOBOE; he states he feels better today.
[2016-10-22 05:56] LABS: BASOPHILS % (AUTO) 0.2 % (0-3); EOSINOPHILS % (AUTO) 0.4 % (0-5); MONOCYTES % (AUTO) 13.1 % (4-12); Mean Corpuscular Hemoglobin 29.6 pg (27.0-35.0); NEUTROPHILS % (AUTO) 78.8 % (40-74); Platelet Count 259 bil/L (150-400)
[2016-10-22 06:15] LABS: INR 1.57 ratio
[2016-10-22] MEDS: Diltiazem CD 240 mg ER24 Capsule PO SCH (07:25)
[2016-10-22] MEDS: 0.9% Sodium Chloride 1,000 ML IV SCH ×2 (07:26→17:31)
[2016-10-22] MEDS: Fluticasone 0.05% 15 Spray/2 Gm 16 Gm Nasal Spray NASAL SCH ×2 (07:27→20:20)
[2016-10-22] MEDS: Albuterol-Ipratropium 120 Spray 4 Gm Inhaler INHALATION SCH ×4 (07:27→21:53)
[2016-10-22] MEDS: levoFLOXacin Inj 750 MG in IV Premix 1 EACH IV SCH (07:29)
--- NOTE | 2016-10-22 11:32 | NUR ---
Social Work-readiness for discharge: Data:EMR reviewed. Pt is on day 2 of hospitalization for pneumonia per H&P. Pt is not medically stable for discharge anticipate 1-2 more days. Pt resides at home and has been up independent in his room. No anticipated discharge needs. SW will continue to follow if needs arise. Assessment:Pt who is independent at baseline. Plan:Pt to discharge home when medically stable via POV. No anticipated discharge needs. SW will continue to follow if needs arise. MAXIMO Haskins
--- NOTE | 2016-10-22 11:36 | PCM.PHAPRO ---
Progress Date of Service: Oct 22, 2016 Warfarin dosing Date Oct 21-Oct 22-Oct INR 1.19 1.19 1.57 INR change 0.38 Warf Dose 6mg 4mg 4mg Madeline Sutton PharmD Oct 22, 2016 11:36
[2016-10-22] MEDS: levoFLOXacin 750 mg Tablet PO SCH (11:56)
[2016-10-22] MEDS: Heparin 25K Unit/500mL 0.45 NS 25,000 UNIT in IV Premix 1 EACH IV SCH (11:58)
--- NOTE | 2016-10-22 15:22 | PCM.PNMED ---
Subjective Date of Service Oct 22, 2016 Subjective Patient notes that his cough has improved and is feeling somewhat better. Exam Vital Signs Vital Sign - Last Date Time Temp Pulse Resp B/P Pulse Ox O2 Delivery O2 Flow Rate FiO2 10/22/16 12:34 36.5 74 18 128/64 94 Room Air 10/21/16 02:32 2.00 Intake and Output 10/21/16 10/21/16 10/22/16 Cumulative From/Thru 15:00 23:00 07:00 10/20/16 15:34 - 10/22/16 05:33 Intake Total 1342 ml 280 ml 3675 ml Output Total 625 ml 1000 ml 1900 ml Balance 717 ml -720 ml 1775 ml Intake Oral 1120 ml 280 ml 1800 ml IV Total 222 ml 1875 ml Output Urine Total 625 ml 1000 ml 1900 ml # Bowel Movements 0 0 0 Exam Constitutional: Middle-aged male in no acute distress Head: Normocephalic atraumatic Chest: Clear to auscultation except for scant crackles at his left base IVs and Medications Medications Reviewed: Medications were reviewed in detail Lab and Diagnostics Laboratory Tests 72 Hours Test 10/20/16 16:13 10/20/16 16:22 10/20/16 17:47 10/20/16 21:50 White Blood Count 17.4th/mm3 (3.8-10.1) Red Blood Count 3.71mil/mm3 (4.40-5.80) Hemoglobin 11.3g/dL (13.8-17.2) Hematocrit 34.9% (41.0-50.0) Mean Corpuscular Volume 94.1fL (81-100) Mean Corpuscular Hemoglobin 30.5pg (27.0-35.0) Mean Corpuscular Hemoglobin Concent 32.4% (32.0-37.0) Red Cell Distribution Width 14.1% (12.3-15.4) Platelet Count 275bil/L (150-400) Neutrophils (%) (Auto) 84.7% (40-74) Lymphocytes (%) (Auto) 5.1% (14-46) Monocytes (%) (Auto) 9.2% (4-12) Eosinophils (%) (Auto) 0.5% (0-5) Basophils (%) (Auto) 0.2% (0-3) Sodium Level 138mEq/L (134-144) Potassium Level 4.0mEq/L (3.5-5.2) Chloride Level 98mEq/L (97-108) Carbon Dioxide Level 20mmol/L (18-29) Blood Urea Nitrogen 30mg/dL (8-27) Creatinine 1.67mg/dL (0.76-1.27) Estimat Glomerular Filtration Rate 43mL/min (>59) Glucose Level 116mg/dL (60-99) Hemoglobin A1c 5.7% (4.8-5.6) Calcium Level 9.0mg/dL (8.5-10.1) Total Bilirubin 0.8mg/dL (0.0-1.2) Aspartate Amino Transf (AST/SGOT) 29U/L (0-50) Alanine Aminotransferase (ALT/SGPT) 27U/L (0-44) Alkaline Phosphatase 115U/L (25-160) Troponin T 0.027ug/L (0.0-0.011) Pro-B-Type Natriuretic Peptide 3752pg/mL (0-376) Total Protein 7.2g/dL (6.4-8.4) Albumin 3.6g/dL (3.4-5.0) Procalcitonin 0.15ng/mL (0.00-0.08) Lactic Acid Level 1.2mmol/L (0.4-2.0) Urine Color Yellow (YELLOW) Urine Appearance Clear (CLEAR,HAZY) Urine pH 5.0 (5.0-8.0) Urine Specific [place] 1.025 (1.003-1.035) Urine Protein 100mg/dL (NEG,TRACE) Urine Glucose (UA) Negativemg/dL (NEGATIVE) Urine Ketones Negativemg/dL (NEGATIVE) Urine Occult Blood Small (NEGATIVE) Urine Nitrite Negative (NEGATIVE) Urine Bilirubin Negative (NEGATIVE) Urine Urobilinogen Normalmg/dL (NORMAL) Urine Leukocyte Esterase Negative (NEGATIVE) Urine RBC 0-2/hpf (0-2) Urine WBC 0-5/hpf (0-5) Urine Epithelial Cells Occasional/hpf (NONE-MOD) Urine Crystals Amorphous urates (NONE Urine Bacteria None/hpf (NONE-FEW) Urine Hyaline Casts None/lpf (NONE) Urine Granular Casts None seen (NONE SEEN) Urine Waxy Casts None seen (NONE SEEN) Urine Red Blood Cell Casts None seen (NONE SEEN) Urine White Blood Cell Casts None seen (NONE SEEN) Urine Mucus None seen (None Seen) Urine Trichomonas None seen (NONE SEEN) Urine Yeast None (NONE SEEN) Urinalysis Comment None Urine Culture Reflexed Not indicated Prothrombin Time 12.8sec (8.1-12.5) Prothromb Time International Ratio 1.19ratio Test 10/21/16 02:25 10/21/16 02:30 10/21/16 05:05 10/21/16 10:20 White Blood Count 15.2th/mm3 (3.8-10.1) Red Blood Count 3.52mil/mm3 (4.40-5.80) Hemoglobin 10.5g/dL (13.8-17.2) Hematocrit 33.2% (41.0-50.0) Mean Corpuscular Volume 94.3fL (81-100) Mean Corpuscular Hemoglobin 29.8pg (27.0-35.0) Mean Corpuscular Hemoglobin Concent 31.6% (32.0-37.0) Red Cell Distribution Width 14.3% (12.3-15.4) Platelet Count 247bil/L (150-400) Neutrophils (%) (Auto) 79.3% (40-74) Lymphocytes (%) (Auto) 8.1% (14-46) Monocytes (%) (Auto) 11.8% (4-12) Eosinophils (%) (Auto) 0.4% (0-5) Basophils (%) (Auto) 0.1% (0-3) Sodium Level 139mEq/L (134-144) Potassium Level 4.0mEq/L (3.5-5.2) Chloride Level 101mEq/L (97-108) Carbon Dioxide Level 21mmol/L (18-29) Blood Urea Nitrogen 29mg/dL (8-27) Creatinine 1.56mg/dL (0.76-1.27) Estimat Glomerular Filtration Rate 47mL/min (>59) Glucose Level 106mg/dL (60-99) Calcium Level 9.0mg/dL (8.5-10.1) Magnesium Level 2.1mg/dL (1.6-2.6) Total Bilirubin 0.7mg/dL (0.0-1.2) Aspartate Amino Transf (AST/SGOT) 28U/L (0-50) Alanine Aminotransferase (ALT/SGPT) 30U/L (0-44) Alkaline Phosphatase 108U/L (25-160) Total Protein 7.0g/dL (6.4-8.4) Albumin 3.7g/dL (3.4-5.0) Troponin T 0.024ug/L (0.0-0.011) 0.023ug/L (0.0-0.011) Urine Legionella pneumophilia Ag Negative (Negative) Test 10/21/16 17:40 10/21/16 23:58 10/22/16 05:35 10/22/16 11:30 Activated Partial Thromboplast Time 68.8sec (22.8-33.0) 58.0sec (22.8-33.0) 51.1sec (22.8-33.0) 64.7sec (22.8-33.0) White Blood Count 13.4th/mm3 (3.8-10.1) Red Blood Count 3.61mil/mm3 (4.40-5.80) Hemoglobin 10.7g/dL (13.8-17.2) Hematocrit 33.2% (41.0-50.0) Mean Corpuscular Volume 92.0fL (81-100) Mean Corpuscular Hemoglobin 29.6pg (27.0-35.0) Mean Corpuscular Hemoglobin Concent 32.2% (32.0-37.0) Red Cell Distribution Width 14.1% (12.3-15.4) Platelet Count 259bil/L (150-400) Neutrophils (%) (Auto) 78.8% (40-74) Lymphocytes (%) (Auto) 7.2% (14-46) Monocytes (%) (Auto) 13.1% (4-12) Eosinophils (%) (Auto) 0.4% (0-5) Basophils (%) (Auto) 0.2% (0-3) Prothrombin Time 17.0sec (8.1-12.5) Prothromb Time International Ratio 1.57ratio Sodium Level 136mEq/L (134-144) Potassium Level 4.1mEq/L (3.5-5.2) Chloride Level 101mEq/L (97-108) Carbon Dioxide Level 19mmol/L (18-29) Blood Urea Nitrogen 24mg/dL (8-27) Creatinine 1.46mg/dL (0.76-1.27) Estimat Glomerular Filtration Rate 50mL/min (>59) Glucose Level 113mg/dL (60-99) Calcium Level 9.2mg/dL (8.5-10.1) Total Bilirubin 0.7mg/dL (0.0-1.2) Aspartate Amino Transf (AST/SGOT) 34U/L (0-50) Alanine Aminotransferase (ALT/SGPT) 35U/L (0-44) Alkaline Phosphatase 119U/L (25-160) Total Protein 6.8g/dL (6.4-8.4) Albumin 3.5g/dL (3.4-5.0) Result Diagram: 10/22/16 0535 10/22/16 0535 X-Rays, CTs and MRIs Chest x-ray performed 10/20/2016 IMPRESSION: Small right pleural effusion unchanged to slightly more prominent since the previous x-ray of 10/18/16. No evidence for failure or infiltrate is identified as the cause of this. Dictated by: Fito Cowan M.D. on 10/20/2016 at 16:35 PROCEDURE: CT CHEST WITHOUT CONTRAST ([id number]) INDICATIONS: sepsis,lung ca TECHNIQUE: Noncontrast 5 mm thick sections acquired from the pulmonary apices to the posterior costophrenic angles. 7 mm thick coronal and sagittal MIP reformats were then acquired. For radiation dose reduction, the following was used: automated exposure control, adjustment of mA and/or kV according to patient size. COMPARISON: [facility], CR, XR CHEST 1VW (PORTABLE), 10/20/2016, 15: 59. [facility], CT, CT CHEST ABDOMEN WO CONTRAST, 05/30/2016, 12: 45 PM. FINDINGS: Image quality: Excellent. Lungs and pleura: No acute air space opacities. No change in left apical airspace opacity. No change in right perihilar airspace opacity involving the right upper lower, middle, and lower lobes. There is patchy ill-defined groundglass and nodular density within the more peripheral and posterior aspects of the right lower lobe, new since the prior examination. The superimposed nodular densities range in size up to 13 mm. No pneumothorax. Small right pleural effusion, new since the prior examination. New, 7 mm subpleural nodule within the left lower lobe posteriorly. New ground glass density within the left lower lobe at the lung base anteriorly. Central and peripheral airways are patent and normal in caliber. Mediastinum: Heart size is enlarged. There is a small amount of gas within the right atrial appendage, presumably iatrogenic. There is calcification of the coronary vasculature. No pericardial effusion. No mediastinal adenopathy by size criteria. Thoracic aorta and central pulmonary arteries are normal in size. Esophagus is normal in caliber. No change in small hiatal hernia. Bones and chest wall: No suspicious bony lesions. No vertebral body compression fractures. No axillary or supraclavicular adenopathy by size criteria. Thyroid gland is not included on the examination. Abdomen: Visualized portions of the upper abdomen demonstrate severe right renal atrophy. IMPRESSION: 1. New left lower lobe pneumonia. 2. New patchy ill-defined densities within the right lower lobe, with superimposed nodular densities. Small right pleural effusion. These findings are consistent with pneumonia with small parapneumonic effusion, but followup imaging is recommended to ensure resolution and exclude underlying malignancy. 3. New left lower lobe 7 mm diameter nodule; recommend attention to this region on followup imaging studies. 4. Small amount of gas within the right atrium, presumably iatrogenic. 5. No change in left apical and right perihilar post radiation therapy scarring. 6. Severe right renal atrophy. 7. No change in small hiatal hernia. 8. Cardiomegaly. Coronary artery disease. Dictated by: Ricci Victor M.D. on 10/21/2016 at 16:15 Approved by: Ricci Victor M.D. on 10/21/2016 at 16:21 12-lead ECG Rate 83, normal axis, irregularly irregular rhythm with absence of P waves, no signs of acute infarct or ischemia, QTC 486 Assessment & Plan 75-year-old gentleman with history of coronary artery disease status post bypass 2, atrial fibrillation anticoagulated, renovascular stenting, lung cancer status post chemotherapy, found to have community-acquired pneumonia 2 days ago with instructions to follow up with primary care doctor on Friday began to have worsening shortness of breath and presented to the emergency department where he was found to meet sepsis criteria and was admitted for sepsis treatment at community acquired pneumonia management. Acute Sepsis, present on admission, resolved Respiratory rate 28 on presentation, WBCs 17.4, dyspnea, cough, x-ray demonstrating pneumonia(reviewed by admitting team on admission). Treatment CAP as below Blood cultures pending Lactic acid was normal C CT of chest report done day of admission which did confirm pneumonia left lower lobe with some nodularities consistent with his cancer diagnosis IV fluids 100 mL per hour normal saline. We will DC IV fluids on October 22. Acute Community acquired pneumonia, present on admission, active Curb 65 score 2, for increased BUN and age greater than 65, BUN chronically elevated. Demonstrated a by x-ray, tachypnea, subjective shortness of breath, elevated white blood count. Received dose of vancomycin, cefepime, levofloxacin from the emergency department. Continue levofloxacillin 750 mg daily (monitor QTC, repeat EKG prior to discharge). Sputum cultures ordered, not acquired before antibiotics given Urine Legionella and strep pneumo antigen ordered. MRSA nasal screen was negative Respiratory virus PCR profile was negative Supplementary O2 as needed to maintain oxygen saturation between 88 and 92% We will proceed with getting a CT of chest without contrast to further elucidate possible infiltrates and chest x-ray with small right pleural effusion. Acute Leukocytosis, present on admission, active Attributed to pulmonary infection. Monitor with a.m. labs and it is slightly improved this morning on October 21. Elevated troponin, chronicity unclear, Present on admission, active Review of hospital labs does not show any previous troponins. Every 6 hour troponin to trend, repeat was stable. May be attributed to decreased renal function and subsequent decreased clearance , however was substantial cardiac history we will continue to monitor. Subtherapeutic anticoagulation, present on admission, active -Patient was started on IV heparin drip as INR was subtherapeutic and we will continue with pharmacy managing warfarin dosing Permanent Atrial fibrillation, present on admission, active Rate controlled on diltiazem, anticoagulated on warfarin. PT/INR pending Placed on remote telemetry Warfarin to be dosed by pharmacy and recommendation was to put on IV heparin bridging (this is chosen since patient has chronic renal failure) until Coumadin dose is titrated to therapeutic. Chronic obstructive pulmonary disease, present on admission, active Continue home albuterol and Combivent. Supplemental oxygen as needed to maintain oxygen saturation between 88-92% His symptoms become worsening or uncontrolled switch nebulized albuterol or DuoNeb's. History of mesothelioma, present on admission -Has been followed by Dr. Handy Rocha at [facility] and will continue to follow him here at [facility] -Upon further review it appears patient has not been seen by Dr. Rocha since seen being seen at [facility] I put a phone call into Dr. Rocha regarding this patient as does have abnormalities on his CT of chest Chronic diastolic Congestive heart failure, present on admission, stable Blood pressure is controlled, continue home furosemide, losartan, atorvastatin. Patient has allergy to lisinopril. Continue home medications Physical exam, chest x-ray do not suggest exacerbation. Chronic Hypertension, controlled on admission, stable Continue home medications as above Chronic kidney disease, stage III, present on admission, stable Creatinine 1.67, review of records shows this to be patient's baseline. We will continue to monitor with daily BMP/CMP Patient admitted to inpatient status with anticipated length of stay greater than 2 midnights based on presenting symptoms, complexity of care, and anticipated risk of adverse events. DVT prophylaxis, patient currently on warfarin. Pain management: Acetaminophen. GI prophylaxis not indicated at this time GI Prophylaxis: Not indicated VTE Prophylaxis: Theraputic Anticoag with Warfarin VTE Mechanical Devices: Venous Foot Pump Resuscitation Status: CPR: Attempt Resuscitation Time spent 30 minutes Katie Winkler MD Oct 22, 2016 15:22
[2016-10-22] MEDS: 0.9% Sodium Chloride 250 ML IV SCH (17:04)
--- NOTE | 2016-10-22 17:10 | NUR ---
Voiding frequency/bladder scan Pt complaining of urinary frequency. MD requested post void bladder scan to be completed. Scan showed Oml PVR. MD aware. Will monitor.
--- NOTE | 2016-10-22 20:05 | DRSVH ---
[facility] [address] [place] [address] Echocardiogram Report Name: LARISA FELDMAN CStudy Date: 10/22/2016 Height: 70 in Hospital Exam Location: [facility] Weight: 191 lb Gender: Male BSA: 2.0 m2 : 1940 Age: 75 yrs BP: 146/89 mmHg Reason For Study: Elevated Troponin History: CABG, AFIB, CHEMOTHERAPY FOR LUNG CANCER Ordering Physician: Flex Ling Performed By: Sravanthi Pappas Referring Physician: Dr Libby Tracey Interpretation Summary Afib with controlled rate. Normal LV size; mild concentric LVH; normal wall motion and LV systolic function. EF is 60-65%. Severe biatrial enlargement. Otherwise normal chamber sizes. Mitral valve leaflets are normal; mild MAC; mild MR. Aortic valve is moderately thickened and calcified with mild associated aortic stenosis. Otherwise no significant valvular abnormalities. Compared to prior study 01/25/2011 aortic valve leaflets have become more stenotic, and leaflet excursion has declined. Otherwise no significant changes have occurred. Procedure: A two-dimensional transthoracic echocardiogram with color flow and Doppler was performed. The study quality was technically adequate. Comparison is made with the echocardiogram of 01/25/2011. The patient had occasional PVCs during the exam. Left Ventricle: The left ventricle is normal in size. Left ventricular wall thickness is mildly increased. The ejection fraction is estimated to be 50- 55%. Diastolic function could not be accurately assessed due to atrial fibrillation. Right Ventricle: The right ventricle is normal size. Right ventricular systolic function is mildly reduced. Atria: Both atria are severely dilated. There is no Doppler evidence for an interatrial shunt. Mitral Valve: The mitral valve leaflets are mildly calcified. There is mild mitral annular calcification. There is borderline mitral valve prolapse of the posterior leaflet. There is mild mitral regurgitation. Aortic Valve: The aortic valve is trileaflet. The aortic valve is moderately calcified. The peak aortic velocity is 2.3 m/sec. The peak aortic velocity on the previous exam was 1.6 m/sec. The aortic valve mean gradient is 12.2 mmHg. The calculated aortic valve area is 1.3 cm2. The aortic valve area indexed to the BSA is 0.63 . There is trace aortic regurgitation. Tricuspid Valve: The tricuspid valve leaflets are thin and pliable. There is mild tricuspid regurgitation. Pulmonic Valve: The pulmonic valve leaflets are thin and pliable; valve motion is normal. There is mild pulmonic regurgitation. Great Vessels: The aortic root is mildly dilated. The ascending aorta could not be visualized. The aortic arch is normal in size. The IVC is dilated (diameter is greater than 2.1 cm) yet it collapses greater than 50% with a sniff. This suggests a right atrial pressure of 8 mm Hg. Pericardium/ Pleura There is no pericardial effusion. MMode/2D Measurements & Calculations LVIDd: 4.9 cm RA long axis LVOT diam: 2.4 cm LVIDs: 3.1 cm LA A2 area: 26.4 cm AoV Opening FS: 37.0 % LA A4 area: 30.1 cm RA area EPSS: 0.28 cm LA length (vol) Ao root diam IVSd: 1.3 cm : 25.0 cm LVPWd: 1.1 cm LA vol: 111.2 ml RA vol Aortic Jxn: 3.0 cm LA vol index : 89.1 ml Ao Arch Diam (Prox RA Trans): 2.8 cm : 43.5 mm2 IVC diam: 2.2 cm LV son. diameter/BSA LV sys. diameter/BSA RVD1 (basal) RVD2 (mid): 3.1 cm (cm/m^2): 2.4 (cm/m^2): 1.5 TAPSE: 1.0 cm Doppler Measurements & Calculations Ao V2 max: 226.2 cm/secMV E max aaron Med Peak E' Aaron TR max aaron Ao max P.5 mmHg : 109.6 cm/sec : 319.7 cm/sec Ao mean P.2 mmHg E/E' med: 21.2 TR max PG LVOT Max Aaron Lat Peak E' Aaron : 40.9 mmHg : 78.8 cm/sec PA V2 max E/E' lat: 16.3 : 74.3 cm/sec BRENDA(I,D): 1.3 cm E/e' average PA mean PG sev ratio: 0.29 PA Accel Time : 0.07 sec MV dec time: 0.15 sec Ao V2 mean LV V1 max PG PA V2 mean : 166.9 cm/sec : 51.0 cm/sec Ao V2 VTI: 49.9 cmLV V1 VTI : 14.5 cm BRENDA(V,D): 1.5 cm2 BRENDA indexed to BSA (cm^2/m^2): 0.63 Reading Physician:08:04 PM
[2016-10-23] MEDS: 0.9% Sodium Chloride 1,000 ML IV SCH ×2 (04:25→14:25)
[2016-10-23 04:58] VITALS: BP 147/78; PULSE 82; RESP 18; O2SAT 96
[2016-10-23 06:30] LABS: BASOPHILS % (AUTO) 0.1 % (0-3); MONOCYTES % (AUTO) 11.2 % (4-12); Mean Corpuscular Hemoglobin 29.8 pg (27.0-35.0); Mean Corpuscular Volume 91.4 fL (81-100); NEUTROPHILS % (AUTO) 79.4 % (40-74); Platelet Count 289 bil/L (150-400)
[2016-10-23 06:52] LABS: INR 1.85 ratio
[2016-10-23] MEDS ORDERED: levoFLOXacin 750 mg Tablet PO SCH (08:30)
[2016-10-23] MEDS: Fluticasone 0.05% 15 Spray/2 Gm 16 Gm Nasal Spray NASAL SCH (08:30)
[2016-10-23] MEDS: Albuterol-Ipratropium 120 Spray 4 Gm Inhaler INHALATION SCH ×2 (09:07→14:15)
[2016-10-23] MEDS: Diltiazem CD 240 mg ER24 Capsule PO SCH (09:08)
[2016-10-23] MEDS: levoFLOXacin 750 mg Tablet PO SCH (09:08)
--- NOTE | 2016-10-23 12:04 | PCM.PHAPRO ---
Progress Warfarin dosing WARFARIN DOSING PER PHARMACY [facility] DFF Date Oct 21-Oct 22-Oct 23-Oct INR 1.19 1.19 1.57 1.85 INR change 0.38 0.28 Warf Dose 6mg 4mg 4mg 4 mg A/P -Subtherapeitic INR but uptrending. Heparin gtt was stopped per provider in anticipation of discharge. -Will continue with warfarin 4mg this evening Amadeo Hardin, PharmD Amadeo Hardin Oct 23, 2016 12:04
[2016-10-23 13:09] VITALS: BP 128/68; PULSE 73; RESP 18; O2SAT 97
--- NOTE | 2016-10-23 13:15 | NUR ---
Heparin Drip Heparin drip was discontinued this AM per hospitalist orders. PTT this AM, prior to stopping gtt, was 78.1 which required no change in gtt and hospitalist stated the INR of 1.85 was okay to stop the heparin drip.
--- NOTE | 2016-10-23 13:30 | NUR ---
Activity Patient has been ambulating in the hallway and in room independently this shift. Able to tolerate walking 1/2 of a lap without feeling tired. Continues to walk 1/2 of a lap in the hallway at a time periodically. When not up ambulating, patient is sitting in the chair and tolerates this well. On room air, short of breath after ambulating in the hallway but not when in room attempting short walks. Continuing to assess oxygen requirements, activity tolerance, and shortness of breath.
[2016-10-23] MEDS ORDERED: LEVO750T9 PO (13:49)
--- NOTE | 2016-10-23 13:54 | PCM.DIMED ---
Discharge Instructions Date of Service Oct 23, 2016 Dates of Hospitalization Oct 20, 2016 at 19:15 Discharge Diagnosis Discharge Diagnosis Community Acquired Pneumonia, Lung CA s/p chemo, Afib, HTN, HFpEF, HTN Activity Discharge Activity: No restrictions Call your provider Call your provider for: Fever or Chills, Shortness of breath, Bleeding, Chest pain, Vomitting, Excessive diarrhea, Weakness (unilateral), Other Patient Instructions Follow-up plan F/U with PCP in 7-10 days F/U with Dr. Rocha as recommended by Dr. Rocha INR check in 2 days following discharge CBC check in one week following discharge F/U non-contrast CT scan for lung nodule at 6 months Emily Watson DO Oct 23, 2016 13:53
--- NOTE | 2016-10-23 14:16 | PCM.DC.MED ---
Discharge Summary Date of Service Oct 23, 2016 Dates of Hospitalization Date of Hospital Admission Oct 20, 2016 at 19:15 Date of Discharge: Oct 23, 2016 Providers: Admitting Physician: Gabrielle Mendosa DO Primary Care Physician: Libby Tracey MD Attending Physician: Emily Frias DO Diagnosis at Time of Discharge Diagnosis at Time of Discharge Community Acquired Pneumonia, Lung CA s/p chemo, Afib, HTN, HFpEF, HTN Consultations Oncology/Dr. Rocha Procedures XRay, CTs & MRIs Chest x-ray performed 10/20/2016 IMPRESSION: Small right pleural effusion unchanged to slightly more prominent since the previous x-ray of 10/18/16. No evidence for failure or infiltrate is identified as the cause of this. Dictated by: Fito Cowan M.D. on 10/20/2016 at 16:35 PROCEDURE: CT CHEST WITHOUT CONTRAST ([id number]) INDICATIONS: sepsis,lung ca TECHNIQUE: Noncontrast 5 mm thick sections acquired from the pulmonary apices to the posterior costophrenic angles. 7 mm thick coronal and sagittal MIP reformats were then acquired. For radiation dose reduction, the following was used: automated exposure control, adjustment of mA and/or kV according to patient size. COMPARISON: [facility], CR, XR CHEST 1VW (PORTABLE), 10/20/2016, 15: 59. [facility], CT, CT CHEST ABDOMEN WO CONTRAST, 05/30/2016, 12: 45 PM. FINDINGS: Image quality: Excellent. Lungs and pleura: No acute air space opacities. No change in left apical airspace opacity. No change in right perihilar airspace opacity involving the right upper lower, middle, and lower lobes. There is patchy ill-defined groundglass and nodular density within the more peripheral and posterior aspects of the right lower lobe, new since the prior examination. The superimposed nodular densities range in size up to 13 mm. No pneumothorax. Small right pleural effusion, new since the prior examination. New, 7 mm subpleural nodule within the left lower lobe posteriorly. New ground glass density within the left lower lobe at the lung base anteriorly. Central and peripheral airways are patent and normal in caliber. Mediastinum: Heart size is enlarged. There is a small amount of gas within the right atrial appendage, presumably iatrogenic. There is calcification of the coronary vasculature. No pericardial effusion. No mediastinal adenopathy by size criteria. Thoracic aorta and central pulmonary arteries are normal in size. Esophagus is normal in caliber. No change in small hiatal hernia. Bones and chest wall: No suspicious bony lesions. No vertebral body compression fractures. No axillary or supraclavicular adenopathy by size criteria. Thyroid gland is not included on the examination. Abdomen: Visualized portions of the upper abdomen demonstrate severe right renal atrophy. IMPRESSION: 1. New left lower lobe pneumonia. 2. New patchy ill-defined densities within the right lower lobe, with superimposed nodular densities. Small right pleural effusion. These findings are consistent with pneumonia with small parapneumonic effusion, but followup imaging is recommended to ensure resolution and exclude underlying malignancy. 3. New left lower lobe 7 mm diameter nodule; recommend attention to this region on followup imaging studies. 4. Small amount of gas within the right atrium, presumably iatrogenic. 5. No change in left apical and right perihilar post radiation therapy scarring. 6. Severe right renal atrophy. 7. No change in small hiatal hernia. 8. Cardiomegaly. Coronary artery disease. Dictated by: Ricci Victor M.D. on 10/21/2016 at 16:15 Approved by: Ricci Victor M.D. on 10/21/2016 at 16:21 ECG 12 Lead Rate 83, normal axis, irregularly irregular rhythm with absence of P waves, no signs of acute infarct or ischemia, QTC 486 Brief History 75-year-old gentleman with history of atrial fibrillation on warfarin, hypertension, congestive heart failure, coronary artery disease status post coronary bypass 2, history of lung cancer from asbestos exposure has completed chemotherapy reportedly in remission, chronic kidney disease status post bilateral renal artery stents, presents following 2 days of progressive shortness of breath, nonproductive cough. Reportedly seen [address] Felder for evaluation of peripheral stent placement in Rt LE, this was postponed after being found that he had an elevated white blood count, chest x- ray at the time showed infiltrate suspicious of pneumonia. At the time he is asymptomatic except for dry cough which he attributed to [place] He has a daughter who is a nurse who saw him today and recommended he go to the ER due to his increased respiratory rate and increased cough. On presentation to the emergency department had a temperature of 37.9, respiratory rate 28, 93% on room air, blood pressure 130/71. White blood cell count 17.4, 84% neuts, hemoglobin 11.3 BUN 30 creatinine 1.67, glucose 116, lactic acid 1.2, troponin 0.27 EKG showed atrial fibrillation, no signs of acute ischemia or infarct, QTC 486, rate 83. Chest x-ray redemonstrated findings from chest x-ray on 10/18/2016 -small right pleural effusion. Based on patient's increased respiratory rate, elevated temperature, elevated white blood count, patient was admitted for sepsis secondary to community- acquired pneumonia. He received a dose of vancomycin, cefepime, and the emergency department was admitted and placed on ceftriaxone. On encounter for admission patient denies any lightheadedness, dizziness, nausea vomiting diarrhea, constipation, bruising or bleeding, headache, changes in vision, palpitations, chest pain, numbness weakness or tingling in his arms hands feet or legs, weight loss or weight gain. Hospital Course 75-year-old gentleman with history of coronary artery disease status post bypass 2, atrial fibrillation anticoagulated, renovascular stenting, lung cancer status post chemotherapy, found to have community-acquired pneumonia 2 days ago with instructions to follow up with primary care doctor on Friday began to have worsening shortness of breath and presented to the emergency department where he was found to meet sepsis criteria and was admitted for sepsis treatment at community acquired pneumonia management. Acute Sepsis, present on admission, resolved Respiratory rate 28 on presentation, WBCs 17.4, dyspnea, cough, x-ray demonstrating pneumonia(reviewed by admitting team on admission). Treatment CAP as below Blood cultures NGTD Lactic acid was normal CT of chest report done day of admission which did confirm pneumonia left lower lobe with some nodularities consistent with his cancer diagnosis Acute Community acquired pneumonia, present on admission, improved Curb 65 score 2, for increased BUN and age greater than 65, BUN chronically elevated. Demonstrated a by x-ray, tachypnea, subjective shortness of breath, elevated white blood count. Received dose of vancomycin, cefepime, levofloxacin from the emergency department. Continue levofloxacillin 750 mg daily (monitor QTC, repeat EKG prior to discharge). Sputum cultures ordered, not acquired before antibiotics given Urine Legionella and strep pneumo antigen ordered. MRSA nasal screen was negative Respiratory virus PCR profile was negative Supplementary O2 as needed to maintain oxygen saturation between 88 and 92%. Pt was saturating fully on RA on the day of discharge Pt is feeling better, cough and sputum have improved. He is afebrile, wanting to go home. He has seen Dr. Rocha on the AM of his discharge. Patient is given 5 more days of Levaquin for discharge Acute Leukocytosis, present on admission, improved Attributed to pulmonary infection. Trending down on the day of discharge. F/U CBC in one week Elevated troponin, chronicity unclear, Present on admission, stable Review of hospital labs does not show any previous troponins. Every 6 hour troponin to trend, repeat was stable. May be attributed to decreased renal function and subsequent decreased clearance Subtherapeutic anticoagulation, present on admission, active -Patient was started on IV heparin drip as INR was subtherapeutic at the time of admission, it. In the a.m. of 10/22 -INR is 1.85 on the day of discharge. -F/U INR in 2 days after d/c Permanent Atrial fibrillation, present on admission, active Rate controlled on diltiazem, anticoagulated on warfarin. PT/INR pending Placed on remote telemetry Warfarin to be dosed by pharmacy, heparin bridging was used. Chronic obstructive pulmonary disease, present on admission, active Continue home albuterol and Combivent. Supplemental oxygen as needed to maintain oxygen saturation between 88-92% History of mesothelioma, present on admission -Has been followed by Dr. Handy Rocha at [facility] and will continue to follow him here at [facility] -Upon further review it appears patient has not been seen by Dr. Rocha since seen being seen at [facility] I put a phone call into Dr. Rocha regarding this patient as does have abnormalities on his CT of chest. Dr. Rocha has seen the patient in the a.m. of 10/23. Chronic diastolic Congestive heart failure, present on admission, stable Blood pressure is controlled, continue home furosemide, losartan, atorvastatin. Patient has allergy to lisinopril. Continue home medications Physical exam, chest x-ray did not suggest exacerbation. Chronic Hypertension, controlled on admission, stable Continued home medications as above Chronic kidney disease, stage III, present on admission, stable Creatinine 1.67, review of records shows this to be patient's baseline. daily BMP/CMP were ordered Patient admitted to inpatient status with anticipated length of stay greater than 2 midnights based on presenting symptoms, complexity of care, and anticipated risk of adverse events. DVT prophylaxis, patient currently on warfarin. Pain management: Acetaminophen. GI prophylaxis not indicated at this time Exam Vital Signs (Last) Date Time Temp Pulse Resp B/P Pulse Ox O2 Delivery O2 Flow Rate FiO2 10/23/16 13:09 36.8 73 18 128/68 97 Room Air 10/21/16 02:32 2.00 Exam Constitutional: Middle-aged male in no acute distress Head: Normocephalic atraumatic Chest: Clear to auscultation except for scant crackles at his left base Cor: Irregular regular rate and rhythm S1-S2 Abdomen: Soft nontender bowel sounds present Extremities: Bilateral pedal edema Neuro: Alert and oriented 3 Psych: No anxiety or agitation Test 10/20/16 16:13 10/20/16 16:22 10/20/16 17:47 10/21/16 02:25 Hemoglobin A1c 5.7% (4.8-5.6) Pro-B-Type Natriuretic Peptide 3752pg/mL (0-376) Lactic Acid Level 1.2mmol/L (0.4-2.0) Urine Color Yellow (YELLOW) Urine Appearance Clear (CLEAR,HAZY) Urine pH 5.0 (5.0-8.0) Urine Specific [place] 1.025 (1.003-1.035) Urine Protein 100mg/dL (NEG,TRACE) Urine Glucose (UA) Negativemg/dL (NEGATIVE) Urine Ketones Negativemg/dL (NEGATIVE) Urine Occult Blood Small (NEGATIVE) Urine Nitrite Negative (NEGATIVE) Urine Bilirubin Negative (NEGATIVE) Urine Urobilinogen Normalmg/dL (NORMAL) Urine Leukocyte Esterase Negative (NEGATIVE) Urine RBC 0-2/hpf (0-2) Urine WBC 0-5/hpf (0-5) Urine Epithelial Cells Occasional/hpf (NONE-MOD) Urine Crystals Amorphous urates (NONE Urine Bacteria None/hpf (NONE-FEW) Urine Hyaline Casts None/lpf (NONE) Urine Granular Casts None seen (NONE SEEN) Urine Waxy Casts None seen (NONE SEEN) Urine Red Blood Cell Casts None seen (NONE SEEN) Urine White Blood Cell Casts None seen (NONE SEEN) Urine Mucus None seen (None Seen) Urine Trichomonas None seen (NONE SEEN) Urine Yeast None (NONE SEEN) Urinalysis Comment None Urine Culture Reflexed Not indicated Magnesium Level 2.1mg/dL (1.6-2.6) Test 10/21/16 05:05 10/21/16 10:20 10/23/16 06:20 Urine Legionella pneumophilia Ag Negative (Negative) Troponin T 0.023ug/L (0.0-0.011) White Blood Count 12.1th/mm3 (3.8-10.1) Red Blood Count 3.72mil/mm3 (4.40-5.80) Hemoglobin 11.1g/dL (13.8-17.2) Hematocrit 34.0% (41.0-50.0) Mean Corpuscular Volume 91.4fL (81-100) Mean Corpuscular Hemoglobin 29.8pg (27.0-35.0) Mean Corpuscular Hemoglobin Concent 32.6% (32.0-37.0) Red Cell Distribution Width 14.2% (12.3-15.4) Platelet Count 289bil/L (150-400) Neutrophils (%) (Auto) 79.4% (40-74) Lymphocytes (%) (Auto) 8.1% (14-46) Monocytes (%) (Auto) 11.2% (4-12) Eosinophils (%) (Auto) 1.0% (0-5) Basophils (%) (Auto) 0.1% (0-3) Prothrombin Time 20.1sec (8.1-12.5) Prothromb Time International Ratio 1.85ratio Activated Partial Thromboplast Time 71.8sec (22.8-33.0) Sodium Level 139mEq/L (134-144) Potassium Level 3.9mEq/L (3.5-5.2) Chloride Level 102mEq/L (97-108) Carbon Dioxide Level 20mmol/L (18-29) Blood Urea Nitrogen 24mg/dL (8-27) Creatinine 1.52mg/dL (0.76-1.27) Estimat Glomerular Filtration Rate 48mL/min (>59) Glucose Level 98mg/dL (60-99) Calcium Level 9.4mg/dL (8.5-10.1) Total Bilirubin 0.5mg/dL (0.0-1.2) Aspartate Amino Transf (AST/SGOT) 40U/L (0-50) Alanine Aminotransferase (ALT/SGPT) 45U/L (0-44) Alkaline Phosphatase 127U/L (25-160) Total Protein 7.0g/dL (6.4-8.4) Albumin 3.5g/dL (3.4-5.0) Procalcitonin 0.16ng/mL (0.00-0.08) Discharge Medications Discharge Medications Albuterol/Ipratropium (Combivent Respimat Inhal [place]) 120 Spr/4 Gm Inhaler 1 PUFF IH QID (Reported) Atorvastatin (Lipitor) 40 Mg Tablet 40 MG PO DAILY (Reported) Diltiazem ER (Diltiazem ER) 240 Mg Cap.er.deg 240 MG PO DAILY (Reported) Famotidine (Famotidine) 20 Mg Tablet 20 MG PO BID (Reported) Fluticasone Propionate (Flovent HFA 110 mcg) 12 Gm Aer.w.adap 1 PUFF IH BID ( Reported) Furosemide (Furosemide) 40 Mg Tablet 40 MG PO DAILY (Reported) Levofloxacin (Levaquin) 750 Mg Tablet 750 MG PO DAILY Prescribed by: EMILY FRIAS DO Losartan Potassium (Losartan Potassium) 50 Mg Tablet 50 MG PO DAILY (Reported) Nitroglycerin SL (Nitrostat) 0.4 Mg Tab.subl 0.4 MG SL Q5MIN (Reported) Warfarin Sodium (Warfarin Sodium) 2 Mg Tablet 2 MG PO DAILY (Reported) 2mg on Friday and Warfarin Sodium (Warfarin Sodium) 4 Mg Tablet 4 MG PO DAILY (Reported) 4mg daily except on and As needed Albuterol HFA (Proair HFA) 8.5 Gm Hfa.aer.ad 2 PUFFS INHALATION Q4H PRN PRN For Shortness of Breath (Reported) Oxycodone HCl/Acetaminophen 5-325 (Endocet 5-325) 1 Each Tablet 1 TABLET PO Q4H PRN PRN For Pain (Reported) Followup Plan Follow-up plan F/U with PCP in 7-10 days F/U with Dr. Rocha as recommended by Dr. Rocha INR check in 2 days following discharge CBC check in one week following discharge F/U non-contrast CT scan for lung nodule at 6 months Discharge Activity: No restrictions Time spent Greater than 30 minutes was spent in preparation of discharge with greater than 50% of that time dedicated to patient counseling and coordination of care. Emily Frias DO Oct 23, 2016 14:16
[2016-10-23] MEDS ORDERED: Albuterol-Ipratropium 120 Spray 4 Gm Inhaler INHALATION SCH (14:30)
--- NOTE | 2016-10-23 14:56 | NUR ---
Social Work-discharge: Data:EMR reviewed. Pt is on day 3 of hospitalization for pneumonia per H&P. Pt is medically stable for discharge today. Pt resides at home and has been up independent in his room. Pt's daughter to provide transport home. No discharge needs identified. All updated and agreeable to plan. Assessment:Pt who is independent at baseline. Plan:Pt to discharge home when medically stable via POV. No discharge needs identified. All updated and agreeable to plan. MAXIMO Haskins
--- NOTE | 2016-10-23 16:08 | NUR ---
Discharge Patient discharged home at 1530 with neighbor. Requested to ambulate out to personal vehicle with patient belongings. Discharge information gone over and given. Patient verbalized understanding of taking antibiotics, warfarin dosage, and follow up appointments that need to be made. Port was deaccessed by IV therapy.
--- NOTE | 2016-10-25 15:15 | PROG NOTE ---
[address] [address] PROGRESS NOTE PATIENT: LARISA FELDMAN : 1940 MR#: [id number] ADMIT: 10/20/2016 JOB ID: [id number] DATE: 10/23/2016 SUBJECTIVE: The patient is a 75-year-old gentleman with a history of mesothelioma, hospitalized on October 20, 2016 with a community-acquired pneumonia and sepsis. The original diagnosis in this former smoker with heavy asbestos exposure was in 2012. CT PET imaging on May 15, 2012 showed a hypermetabolic 10.9 cm mass in the left lung apex. There was also an atypical finding in the right maxillary alveolar ridge, and in the mid ascending colon, without any corresponding lesions in those areas. He had hypermetabolic activity in the gluteal muscles bilaterally, also without a detected abnormality. Pathology was a squamous cell carcinoma treated with chemotherapy and radiation. He has been managed at [facility] by Dr. Conroy. Outside records are not available. During the current hospitalization, he had a CT of the chest on October 21, 2016 that showed a new left lower lobe pneumonia and patchy ill-defined densities within the right lower lung with superimposed nodular densities. There was a small right pleural effusion. There is also a new left lower lobe 0.7 cm nodule. There was left apical and right perihilar scarring from prior radiation. Incidental note was made of cardiomegaly and a small hiatal hernia as well as severe right renal atrophy. He has been on antibiotic coverage with Levaquin, currently 750 mg by mouth daily. Microbiology from blood, nasopharynx, urine and stool were all negative. OBJECTIVE: Vitals: T 36.8, P 73, R 18, BP 128/68. O2 saturation 97% on room air. HEENT: Conjunctivae slightly pale. Mucous membranes moist. No oral lesions. Nodes: No palpable lymphadenopathy in the neck or axilla. Chest: A few scattered bibasilar crackles. Cardiac examination: Regular rate and rhythm with normal S1, S2, 1/6 systolic ejection murmur across the precordium. Abdomen: Soft, nontender. Normoactive bowel tones. No splenomegaly or masses. Extremities: Trace edema. 2+ distal pulses. No calf tenderness. LABORATORIES: WBC 12.1 with 79% neutrophils, 8% lymphocytes, hemoglobin 11.1, hematocrit 34%, platelets 289,000. BUN 24, creatinine 1.52. Glucose 98. AST 40, ALT 45, alkaline phosphatase 127. 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 Current imaging is consistent with pneumonia, but cannot exclude residual underlying malignancy. After he completes a course of antibiotics, recommend additional followup with Dr. Conroy, his oncologist at [facility]. No indication for further oncologic intervention during this acute hospitalization. Renal function, with a current estimated GFR of 45-50, is stable dating back to 2009.
== END 2016-10-23 15:30 | disposition home or self-care (01) | DRG 871 ==
LOC: SED 15:26 → MPC 19:15
PROVIDERS: ADMIT Internal Medicine; ATTEND Family Medicine
DX: A41.9 Sepsis, unspecified organism (principal); J18.8 Other pneumonia, unspecified organism; I50.32 Chronic diastolic (congestive) heart failure; I48.2 Chronic atrial fibrillation; C45.7 Mesothelioma of other sites; J45.909 Unspecified asthma, uncomplicated; N18.3 Chronic kidney disease, stage 3 (moderate); J44.9 Chronic obstructive pulmonary disease, unspecified; I12.9 Hypertensive chronic kidney disease with stage 1 through stage 4 chronic kidney disease, or unspecified chronic kidney disease; I25.10 Atherosclerotic heart disease of native coronary artery without angina pectoris; Z87.891 Personal history of nicotine dependence; Z95.1 Presence of aortocoronary bypass graft; Z79.01 Long term (current) use of anticoagulants; Z79.51 Long term (current) use of inhaled steroids; Z77.090 Contact with and (suspected) exposure to asbestos

== ENCOUNTER 2016-11-06 00:55 | Day surgery (SDC) | payer MEDICARE ==
[2016-11-06] VITALS (10 sets, daily range): BP systolic 128–155; BP diastolic 52–68; PULSE 48–59; RESP 14–22; O2SAT 92–96
[~2016-11-06] VITALS: Ht 177.8 cm; Wt 86.6 kg
[~2016-11-06 00:55] MED LIST changes: +LEVO750T9 PO; -LOSA100T29 PO; +LOSA50TA37 PO; -MECL-114 PO; +OXYC-407 PO
[2016-11-06] MEDS ORDERED: 0.9% Sodium Chloride 1,000 ML IV ONE (07:11)
[2016-11-06 07:18] LABS: BASOPHILS % (AUTO) 0.4 % (0-3); EOSINOPHILS % (AUTO) 2.9 % (0-5); MONOCYTES % (AUTO) 12.7 % (4-12); Mean Corpuscular Hemoglobin 29.4 pg (27.0-35.0); Mean Corpuscular Volume 92.5 fL (81-100); NEUTROPHILS % (AUTO) 69.8 % (40-74); Platelet Count 348 bil/L (150-400)
--- NOTE | 2016-11-06 07:33 | NUR ---
0700 ADMIT NOTE: Patient ambulates into department. His questions are answered and consent was previously signed. IV started and labs drawn. IVT to access port for 2nd IV access. He is prepped for R iliac a. intervention.
--- NOTE | 2016-11-06 07:41 | NUR ---
IV infusion @ 303ml/hr X 1 for Renal Fluid Rx then decrease to 104 ml/hr at 0800.
[2016-11-06] MEDS ORDERED: Heparin 1,000 Units/500 mL NS Premix IV ONE ×2 (09:44→10:33)
[2016-11-06] MEDS ORDERED: Heparin 10,000 Unit/1,000 mL NS Premix IV ONE (09:44)
[2016-11-06] MEDS ORDERED: Heparin 1,000 Unit/mL 10 mL Inj ONE (09:44)
[2016-11-06] MEDS ORDERED: fentaNYL-PF 50 mCg/mL 2 mL Inj ONE (10:23)
--- NOTE | 2016-11-06 12:15 | DI96 ---
[address] [address] PERIPHERAL CATHETERIZATION/INTERVENTION REPORT PATIENT: LARISA FELDMAN : 1940 MR#: [id number] ADMIT: 11/06/2016 JOB ID: [id number] DATE OF SERVICE: 11/06/2016 BILINGUAL BRANCH MANAGER: Koby Felder MD PROCEDURE: Selective right femoral angiography, bilateral iliac angiography. INDICATION: Claudication and CT scan suggesting severe right-sided disease. PROCEDURAL DETAILS: The reader and the coders are referred to the procedure log for complete details. Briefly, we started the procedure via left femoral approach. A rim catheter was used to cross over into the contralateral side in order to minimize contrast because of patient's renal insufficiency, part of the procedure was done with carbon dioxide angiography. ANGIOGRAPHIC DATA: Carbon dioxide angiography in the iliac artery, there was suggestion of eccentric lesion in the origin of the right common iliac artery. In order to confirm it, we did a pullback. On some beats it appeared that there might be a 15-20 mm gradient. The pullback was not reliable because of patient's underlying AFib and therefore my hand was forced, and I had to do an angiogram. Conventional angiography did not reveal any critical stenosis in the right common iliac artery. ANGIOGRAPHIC FINDINGS: Distal abdominal aorta is calcified as are the iliacs. There is no critical stenosis in both common or external iliac arteries. The common femoral arteries bilaterally have moderate disease. There is no critical stenosis. There is mild ectasia of the right common femoral artery. The proximal SFA bilaterally are free of any critical disease on the left side. There is a ostial 50% calcific SFA disease. Following this, we then crossed over from the left to the right side and placed a straight catheter in the right common femoral artery and a carbon dioxide runoff was done. Carbon dioxide runoff did not show any significant disease in the right SFA. The right popliteal is also patent. Next at this point, the procedure was terminated. In summary, the patient's vascular disease, because of calcification, was overestimated by the CT scan. [facility] HOSPITALFlorence
--- NOTE | 2016-11-06 15:29 | NUR ---
Pt discharge to home, ambulatory, accompanied by family, VSS, Lt groin site CDI with no bleeding/hematoma noted. Pt given all discharge instructions and follow up appt and had no further questions at time of d/c.
== END 2016-11-06 23:59 | disposition home or self-care (01) ==
LOC: SOUO 00:55
PROVIDERS: ATTEND Internal Medicine Cardiovascular Disease
DX: I70.212 Atherosclerosis of native arteries of extremities with intermittent claudication, left leg (principal); E78.5 Hyperlipidemia, unspecified; I12.9 Hypertensive chronic kidney disease with stage 1 through stage 4 chronic kidney disease, or unspecified chronic kidney disease; N18.3 Chronic kidney disease, stage 3 (moderate); I48.2 Chronic atrial fibrillation; I25.10 Atherosclerotic heart disease of native coronary artery without angina pectoris; Z85.46 Personal history of malignant neoplasm of prostate; Z95.1 Presence of aortocoronary bypass graft; I25.2 Old myocardial infarction; Z87.891 Personal history of nicotine dependence; Z79.01 Long term (current) use of anticoagulants; Z95.820 Peripheral vascular angioplasty status with implants and grafts; I65.29 Occlusion and stenosis of unspecified carotid artery
CPT/HCPCS: 36246; 36415; 75716; 80048; 85025; 99152; 99153; C1769; J1200; J1644; J2060; J2250; J3010; J7030; Q9967